=== PATIENT | male | born 1965 | race Two or more races ===

== ENCOUNTER 2016-09-21 19:55 | Emergency (ER) | payer BC, OTHER ==
[~2016-09-21] VITALS: Ht 177.8 cm; Wt 81.6 kg
[2016-09-21] MEDS ORDERED: IV NS 0.9% 1,000 ML BAG IV ONE (21:00)
[2016-09-21 21:01] VITALS: BP 110/84
== END 2016-09-21 21:01 | disposition left against medical advice (07) ==
LOC: ER 19:56
DX: R55 Syncope and collapse (principal)
CPT/HCPCS: 82962; 99283; A4606; Z7610